=== PATIENT | female | born 1950 | race Caucasian/White ===

== ENCOUNTER → 2020-06-08 | Day surgery (SDC) | payer MEDICARE, OTHER ==
[~2020-06-08] MED LIST: ALPRAZOLAM0.25 MG PO; AMBIEN5 MG PO; AMITRIPTYLINE H50 M2 PO; AMITRIPTYLINE H75 M1 PO; ASA81BEC PO; CALCITRIOL0.25 MCG PO; CELEXA 10 MG TA10 MG PO; EZETIMIBE10 MG PO; HYDROXYZINE HCL25 M2 PO; LASIX 80 MG TAB80 MG PO; LIDOCAINE1 EACH TOP; MECLIZINE HCL25 MG PO; NARCAN4 MG NARES; NORCO5 PO; NORFLEX100 MG PO; OXYCODONE HCL 55 MG PO; PLAVIX 75 MG TA75 MG PO; PROTONIX40 M3 PO; TOPROL XL25 MG PO; VITAMIN D350 MCG PO
[2020-06-08 07:30] LABS: HEMATOCRIT 27.2 % (37.0-47.0); MCH 29.8 pg (26.0-34.0); MCV 90.2 fL (80.0-100.0); MPV 6.9 fl. (7.2-11.1); RBC 3.02 mil/uL (4.20-5.00); RDW-CV 18.5 % (10.5-14.5); WBC 8.5 thou/uL (4.0-11.0)
[2020-06-08 07:51] LABS: CALCIUM 9.2 mg/dL (8.5-10.1); CREATININE 7.5 mg/dL (0.6-1.3); POTASSIUM 5.2 mmol/L (3.5-5.1)
--- NOTE | 2020-06-08 10:03 | EKG ---
[place] [address] ELECTROCARDIOGRAM REPORT Name: SWAPNIL VASQUEZ Room: 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: : 1950 Requested By: Patricio Craig Order Number: [id number] Reading MD: Bhavin Ferguson Measurements Intervals [place] Rate: 74 P: 44 NM: 225 QRS: -3 QRSD: 119 T: 253 QT: 423 QTc: 470 Interpretive Statements Sinus rhythm Prolonged NM interval Probable left atrial enlargement LVH w/ repol abnormalities, possible ischemia Baseline wander in lead(s) II,III,aVF,V1 No previous ECG available for comparison Electronically Signed On 06-08-2020 10:02:48 [employer] by Bhavin Ferguson [email or web address] <ELECTRONICALLY SIGNED> By: Bhavin Ferguson MD, FAC 06/08/20 1002 0735 0735 Bhavin Ferguson MD, FAC /EPI
--- NOTE | 2020-06-11 06:51 | OP ---
[facility] [address] [place] [address] OPERATIVE REPORT Name: SWAPNIL VASQUEZ Room: [facility] Christopher.Deni.#: [id number] Admission: 06/08/20 Attend Phys: Patricio Craig Discharge: Date of : 50 Report #: [id number] THIS REPORT FOR: cc: Marty Dietrich MD, Paul M. MD ~ Patricio Craig MD DATE OF SERVICE: 06/08/2020 PREOPERATIVE DIAGNOSIS: End-stage renal disease. POSTOPERATIVE DIAGNOSIS: End-stage renal disease. OPERATION: 1. Removal of tunneled intraperitoneal catheter. 2. Laparoscopic placement of a tunneled intraperitoneal catheter. SURGEON: Patricio Craig MD ANESTHESIA: General. ESTIMATED BLOOD LOSS: Minimal. SPECIMEN: None. DESCRIPTION OF PROCEDURE: After informed consent was obtained, the patient was brought to the operating room and placed supine. SCDs were placed and working, preoperative antibiotics were administered, general anesthesia was induced. The abdomen was prepped and draped in the usual sterile fashion. A 5 mm incision was made in the left upper quadrant. A 5 mm trocar was placed under direct vision. Pneumoperitoneum was established. Two left-sided 5 mm trocars were placed. The catheter was tunneled and it was trapped in some omentum. This was then freed up with the graspers. I then flushed this catheter. It flushed very slowly and did not drain at all; therefore, this catheter required removal. The external cuff site was incised with the cautery. The 2 cuffs were freed up and the catheter slid out easily. I then inserted an 8 mm trocar in the left rectus sheath. The 62 cm Covidien catheter was inserted. It was brought down to the pelvis. It was then tunneled to the left upper quadrant of the abdomen. This catheter flushed and [place] very easily. The ports were removed under direct vision. The skin was closed with 4-0 [place] [address] OPERATIVE REPORT Name: EBONY VASQUEZGORGE Room: [facility]#: [id number] Admission: 06/08/20 Attend Phys: Patricio Craig Discharge: Date of : 50 Report #: [id number] Monocryl. Incisions were dressed with Steri-Strips and gauze. COMPLICATIONS: None. DISPOSITION: The patient was taken to recovery in satisfactory condition. <ELECTRONICALLY SIGNED> By: Patricio Craig MD 06/11/20 0651 1058 [id number] Craig MD /nt
== END | disposition home or self-care (01) ==
LOC: M.SUR 05:15
PROVIDERS: ATTEND Surgery
DX: I12.0 Hypertensive chronic kidney disease with stage 5 chronic kidney disease or end stage renal disease (principal); N18.6 End stage renal disease; I25.10 Atherosclerotic heart disease of native coronary artery without angina pectoris; J44.9 Chronic obstructive pulmonary disease, unspecified; E78.5 Hyperlipidemia, unspecified; E66.9 Obesity, unspecified; Z68.42 Body mass index [BMI] 45.0-49.9, adult; G89.29 Other chronic pain; F41.9 Anxiety disorder, unspecified; F32.9 Major depressive disorder, single episode, unspecified; M19.90 Unspecified osteoarthritis, unspecified site; Z98.890 Other specified postprocedural states; Z79.899 Other long term (current) drug therapy; Z87.891 Personal history of nicotine dependence; Z95.1 Presence of aortocoronary bypass graft; Z99.2 Dependence on renal dialysis; Z79.01 Long term (current) use of anticoagulants; Z88.0 Allergy status to penicillin; Z88.8 Allergy status to other drugs, medicaments and biological substances; Z91.041 Radiographic dye allergy status

== ENCOUNTER → 2020-12-25 | Outpatient (CLI) | payer OTHER | LOC: M.LAB 09:47 | PROVIDERS: ATTEND Surgery | DX: Z20.822 Contact with and (suspected) exposure to COVID-19 (principal) ==

== ENCOUNTER → 2020-12-26 | Day surgery (SDC) | payer OTHER ==
--- NOTE | ~2020-12-26 | OP ---
[facility] [address] [place] [address] OPERATIVE REPORT Name: SWAPNIL VASQUEZ I Room: [facility]#: [id number] Admission: 12/26/20 Attend Phys: Patricio Craig Discharge: Date of : 50 Report #: [id number] THIS REPORT FOR: cc: Marty Dietrich MD, Paul M. MD Patterson,Patricio Brewer MD ~ DATE OF SURGERY: 12/26/2020 PREOPERATIVE DIAGNOSIS: End-stage renal disease with malfunctioning peritoneal catheter. POSTOPERATIVE DIAGNOSIS: End-stage renal disease with malfunctioning peritoneal catheter. OPERATION: Revision of tunneled intraperitoneal catheter. SURGEON: Patricio Craig MD ANESTHESIA: General. ESTIMATED BLOOD LOSS: Minimal. SPECIMEN: None. DESCRIPTION OF PROCEDURE: After informed consent was obtained, the patient was brought to the operating room and placed supine. SCDs were placed and working, preoperative antibiotics were administered, general anesthesia was induced. The abdomen was prepped and draped in the usual sterile fashion. A 1 cm elliptical incision was made around the exit site. This piece of skin was excised, taking the cuff, which was exposed, with it. I then made a counterincision in the left rectus sheath. Dissection was carried down to the catheter. The catheter was then cut at this site. The exposed part of the catheter was then removed. I then inserted a connector to the catheter. A piece of presternal catheter was then connected to this. This was done with a connector and tied with 2-0 Prolene. The catheter was then tunneled to the left upper quadrant of the abdomen and exited at a different site. It flushed very easily with heparinized saline. The skin was then closed with 4-0 Monocryl. Incisions were dressed with Steri-Strips. COMPLICATIONS: [place] [address] OPERATIVE REPORT Name: SWAPNIL VASQUEZ I Room: [facility]#: [id number] Admission: 12/26/20 Attend Phys: Patricio Craig Discharge: Date of : 50 Report #: [id number] DISPOSITION: The patient was taken to recovery in satisfactory condition. By: [id number] Craig MD /sukumar
[2020-12-26 06:44] LABS: HEMATOCRIT 29.8 % (37.0-47.0); HEMOGLOBIN 9.9 gm/dL (12.0-15.0); MCH 29.3 pg (26.0-34.0); MCHC 33.1 g/dL (28.0-37.0); MCV 88.4 fL (80.0-100.0); MPV 6.9 fl. (7.2-11.1); RBC 3.37 mil/uL (4.20-5.00); RDW-CV 15.4 % (10.5-14.5); WBC 9.5 thou/uL (4.0-11.0)
[2020-12-26 06:54] LABS: CALCIUM 9.6 mg/dL (8.5-10.1); CREATININE 11.3 mg/dL (0.6-1.3); POTASSIUM 4.1 mmol/L (3.5-5.1)
[2020-12-26 06:57] LABS: APTT 24.6 Seconds (25.0-31.3); PROTIME 10.3 Seconds (9.20-11.50)
--- NOTE | 2020-12-26 10:49 | EKG ---
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1950 Requested By: Patricio Craig Order Number: [id number] Reading MD: Usman Marti Measurements Intervals [place] Rate: 54 P: TN: QRS: 2 QRSD: 122 T: 51 QT: 490 QTc: 465 Interpretive Statements Atrial fibrillation LVH with IVCD and secondary repol abnrm Compared to ECG 06/19/2020 19:54:17 Intraventricular conduction delay now present Left ventricular hypertrophy now present Early repolarization now present Ventricular-paced complex(es) or rhythm no longer present Electronically Signed On 12-26-2020 10:49:30 CDT by Usman Marti [email or web address] <ELECTRONICALLY SIGNED> By: Usman Marti MD, [facility] 12/26/20 1049 0658 0658 Usman Marti MD, [facility] /EPI
== END | disposition home or self-care (01) ==
LOC: M.SUR
PROVIDERS: ATTEND Surgery
DX: T85.691A Other mechanical complication of intraperitoneal dialysis catheter, initial encounter (principal); N18.6 End stage renal disease; I25.10 Atherosclerotic heart disease of native coronary artery without angina pectoris; M19.90 Unspecified osteoarthritis, unspecified site; Z98.890 Other specified postprocedural states; Z79.899 Other long term (current) drug therapy; Z99.2 Dependence on renal dialysis; Z95.1 Presence of aortocoronary bypass graft; Z88.0 Allergy status to penicillin; Z88.8 Allergy status to other drugs, medicaments and biological substances; Y83.8 Other surgical procedures as the cause of abnormal reaction of the patient, or of later complication, without mention of misadventure at the time of the procedure